=== PATIENT | female | born 1985 | race Caucasian/White ===

== ENCOUNTER 2016-10-09 09:09 | Emergency (ER) | payer OTHER ==
[~2016-10-09] VITALS: Ht 170.2 cm; Wt 80.0 kg
[~2016-10-09 09:09] MED LIST: AUGM875T PO
[2016-10-09 09:10] VITALS: BP 123/69; PULSE 15; PULSE 78; RESP 15; TEMP 98.2; O2SAT 99
--- NOTE | 2016-10-09 10:03 | PD ---
HPI Chief Complaint: Fall Time Seen by Provider: 10:03 Travel History International Travel<30 days: No Contact w/Intl Traveler<30days: No Traveled to known affect area: No History of Present Illness HPI 31-year-old female presents to the emergency Department with complaint of left ankle pain after injuring her ankle falling down 2 stairs this morning. She denies hitting her head or loss of consciousness. Denies neck pain or back pain. Location is left lateral ankle. Described as aching pain. Denies paresthesias, loss of sensation to affected extremity. Reports decreased range of motion secondary to pain. Pain is aggravated with ambulation and movement. Pain is decreased while at rest. He took 400 mg ibuprofen prior to arrival. Allergies to Zithromax. No other modifying factors or associated signs and symptoms. PFSH Past Medical History ?: Not LMP: 09/25/16 Social History Alcohol Use: No Tobacco Use: No Substance Use: No Allergies-Medications (Allergen,Severity, Reaction): Coded Allergies: Zithromax (Verified Allergy, Severe, Hives, 10/09/16) Reported Meds & Prescriptions Reported Meds & Active Scripts Active Review of Systems Except as stated in HPI: all other systems reviewed are Neg Physical Exam Narrative GENERAL: Well-nourished, well-developed female patient, in no acute distress SKIN: Warm and dry. HEAD: Atraumatic. Normocephalic. EYES: Pupils equal and round. No scleral icterus. No injection or drainage. ENT: Mucosa pink and moist. Airway patent. NECK: Trachea midline. CARDIOVASCULAR: Regular rate. RESPIRATORY: No accessory muscle use. GASTROINTESTINAL: Flat. MUSCULOSKELETAL: Left ankle with point tenderness to the lateral malleolar zone ; edema to lateral aspects and equal without erythema, ecchymosis; no obvious deformity; limited range of motion. Left lower extremity is supple and non- tense with 2+ pedal pulse and sensory intact without erythema or edema. No obvious deformities. No clubbing. No cyanosis. No edema. NEUROLOGICAL: Awake and alert. Oriented 3. No obvious cranial nerve deficits. Motor grossly within normal limits. Normal speech. PSYCHIATRIC: Appropriate mood and affect; insight and judgment normal. Data Data Last Documented VS Vital Signs Date Time Temp Pulse Resp B/P Pulse Ox O2 Delivery O2 Flow Rate FiO2 10/09/16 09:10 98.2 78 15 123/69 99 Orders Ankle, Complete ([id number]) (10/09/16 10:02) Ibuprofen (Motrin) (10/09/16 10:15) [facility] Medical Decision Making Medical Screen Exam Complete: Yes Emergency Medical Condition: Yes Medical Record Reviewed: Yes Differential Diagnosis Ankle sprain, ankle fracture, fall Narrative Course 31-year-old female with left ankle injury after mechanical fall this morning. Left lower to me supple nontender 2+ pedal pulse and sensory intact without erythema or edema. Ibuprofen 400 mg administered in the ER. Left ankle x-ray ordered. 1045: Left ankle x-ray with no acute findings; with old avulsion fracture to the lateral malleolus. Findings discussed with patient. Velcro ankle splint and crutches provided for support. Ibuprofen prescribed for home. Instructed patient to follow up if symptoms persist greater than 10 days. Patient verbalized understanding and agreement with treatment plan. Patient is medically cleared and stable for discharge. Discussed reasons to return to the emergency department. Instructed patient to follow up with primary care provider. Patient agrees with treatment plan. The patients vital signs are stable and the patient is stable for outpatient follow-up and treatment. Patient discharged home, stable and in no acute distress. Diagnosis Primary Impression: Fall Qualified Code: W19.XXXA - Fall, initial encounter Additional Impression: Left ankle sprain Qualified Code: S93.402A - Sprain of left ankle, unspecified ligament, initial encounter Referrals: Primary Care Physician Patient Instructions: Ankle Sprain (ED), Ankle Stirrup Splint (ED), Crutch Instructions (ED), Fall Prevention (ED), General Instructions Departure Forms: Tests/Procedures, Work Release Enter return to work date: Oct 16, 2016 Additional Instructions: Tylenol/ibuprofen every 6 hours as directed and as needed for pain Rest, ice, compress, and elevate extremity to decrease pain and inflammation Ankle Brace for support Crutches for support Avoid aggravating activity; increase activity as tolerated Follow-up with primary care provider Return to the emergency department immediately with worsening symptoms Med/Other Pt SpecificInfo: Prescription(s) given Scripts Ibuprofen 800 Mg [id number] Mg PO Q6HR PRN (PAIN) #30 TAB Ref 0 Prov:Avril Marvin 10/09/16 Disposition: 01 DISCHARGE HOME Condition: Stable Avril Marvin Oct 09, 2016 10:03
[2016-10-09] MEDS ORDERED: IBUPROFEN 400 MG TAB PO ONE (10:15)
--- NOTE | 2016-10-09 10:30 | RADRPT ---
EXAM DATE/TIME: 10/09/2016 10:21 [facility] COMPARISON: No previous studies available for comparison. INDICATIONS : Left ankle pain after falling down steps. MEDICAL HISTORY : None. SURGICAL HISTORY : Right ankle. ENCOUNTER: Initial ACUITY: 1 day PAIN SCORE: 8/10 LOCATION: Left Ankle. FINDINGS: Three view exam was performed of the left ankle. The bony structures are in normal alignment. No ev idence of fracture/dislocation. Old avulsion fracture lateral malleolus. Soft tissue swelling. The an kle mortise is intact. No radiopaque foreign bodies are seen. Bony mineralization is normal. CONCLUSION: Old avulsion fracture lateral malleolus. Silvino Jones MD on October 09, 2016 at 10:28 Board Certified Radiologist. This report was verified electronically.
[2016-10-09] MEDS ORDERED: IBUP800T23 PO (10:46)
== END 2016-10-09 11:13 | disposition home or self-care (01) ==
LOC: NEPB 09:09
DX: S93.402A Sprain of unspecified ligament of left ankle, initial encounter (principal); W10.9XXA Fall (on) (from) unspecified stairs and steps, initial encounter; Y93.89 Activity, other specified; Y99.9 Unspecified external cause status
CPT/HCPCS: 73610; 99283; E0113; L1906